=== PATIENT | female | born 1995 | race Caucasian/White ===

== ENCOUNTER 2023-07-30 18:43 | Observation (INO) | payer OTHER ==
[~2023-07-30] VITALS: Ht 162.6 cm; Wt 120.0 kg
[2023-07-30] MEDS ORDERED: Morphine 4 MG/ML VIAL IV PRN (19:00)
[2023-07-30] MEDS ORDERED: oxyCODONE 5 MG TAB PO PRN (19:00)
[2023-07-30] MEDS ORDERED: Naloxone 0.4 MG/ML VIAL IV PRN ×2 (19:00→21:30)
[2023-07-30] MEDS ORDERED: HYDROmorphone 0.5 MG/0.5 ML SYRINGE IV PRN (19:00)
[2023-07-30] MEDS ORDERED: Ketorolac 15 MG/ML VIAL IV SCH (19:00)
[2023-07-30] MEDS ORDERED: NS 1,000 ML IV ONE (19:00)
[2023-07-30] MEDS ORDERED: Ondansetron 4 MG/2 ML VIAL IV PRN (19:00)
--- NOTE | 2023-07-30 19:10 | NUR ---
PT ON THE FLOOR VIA EMS. INT TO LEFT WRIST. VITAL SIGNS STABLE. PT REPORTS INCREASED RIGHT FLANK PAIN. BEDSIDE REPORT GIVEN TO GHAZAL VELAZCO. OVIDIO ON THE FLOOR
[2023-07-30] MEDS ORDERED: Ketorolac 15 MG/ML VIAL IV PRN (19:45)
[2023-07-30] MEDS ORDERED: Acetaminophen 500 MG TAB PO PRN (19:45)
[2023-07-30] MEDS ORDERED: Acetaminophen 500 MG TAB PO SCH ×2 (19:48)
[2023-07-30 20:00] VITALS: TEMP 98.1
[2023-07-30] MEDS ORDERED: diphenhydrAMINE 50 MG/ML 1 ML VIAL IV PRN (21:30)
[2023-07-30] MEDS ORDERED: diphenhydrAMINE 25 MG CAP PO PRN (21:30)
[2023-07-30 22:48] VITALS: BP_SYST 102
[2023-07-30] MEDS ORDERED: Naproxen 250 MG TAB PO SCH (22:48)
[2023-07-30] MEDS ORDERED: Ibuprofen 400 MG TAB PO SCH (22:48)
[2023-07-30] MEDS ORDERED: Ibuprofen 600 MG TAB PO SCH (22:48)
[2023-07-30] MEDS ORDERED: Ibuprofen 800 MG TAB PO SCH (22:48)
--- NOTE | 2023-07-30 22:52 | NUR ---
Pt. arrived at 1900 via EMS stretcher. Pt. able to ambulate to the bed independently. Pt. is A&OX3, assessment complete. INT to lt. wrist was patent. IV fluids started see jun. IV to lt wrist infiltrated, new site started by Olivier salcido. rf. forearm 22g. at this time. Pt. did spike a temp of 10.4 around 1999, Tyelenol given, Temp rechecked, and afebrile after tylenol, see vitals. Pt. has been given pain meds for pain see mar. Pt at this time rates pain at a 9, will give pain meds per mar. Pt. denies further needs.
[2023-07-30] MEDS ORDERED: Nicotine 14 MG DAILY PATCH TD SCH (23:15)
[2023-07-30 23:32] VITALS: BP 102/66; PULSE 83; TEMP 98.3
[2023-07-31] VITALS (11 sets, daily range): BP systolic 102–144; BP diastolic 65–84; PULSE 66–72; TEMP 97.5–97.8
[2023-07-31] MEDS ORDERED: Promethazine 12.5 MG in NS 50 ML IV PRN (02:00)
[2023-07-31] MEDS ORDERED: Promethazine 25 MG TAB PO PRN (02:30)
--- NOTE | 2023-07-31 07:05 | NUR ---
awake resting in bed, bedside shift report received from GHAZAL Merino
[2023-07-31] MEDS ORDERED: NS 1,000 ML IV SCH (07:30)
--- NOTE | 2023-07-31 08:00 | NUR ---
requesting to take a shower before surgery, assisted with getting up to shower,
--- NOTE | 2023-07-31 08:20 | NUR ---
shower completed and tolerated well, full assessment completed, see interventions for further info, c/o pain 12/16 and medicated with dilaudid 0.25mg slow IV, consents for surgery signed
--- NOTE | 2023-07-31 09:15 | NUR ---
in bed and appears to be sleeping, resp quiet and easy
[2023-07-31] MEDS ORDERED: LR 1,000 ML IV SCH (09:45)
[2023-07-31] MEDS ORDERED: Famotidine 20 MG TAB PO SCH (09:45)
[2023-07-31] MEDS ORDERED: ABILIFY20 MG PO (09:46)
[2023-07-31] MEDS ORDERED: LAMICTAL 100MG100 MG PO (09:46)
[2023-07-31] MEDS ORDERED: BUSPAR 30MG30 MG/TAB PO (09:47)
[2023-07-31] MEDS ORDERED: EFFEXOR XR75 MG/CAP PO (09:47)
[2023-07-31] MEDS ORDERED: XANAX 0.5MG0.5 MG PO (09:48)
[2023-07-31] MEDS ORDERED: PROAIR HFA0.09 MG/AC IH (09:49)
[2023-07-31] MEDS ORDERED: FLEXERIL 1010 MG/TAB PO (09:49)
--- NOTE | 2023-07-31 10:05 | NUR ---
having dry heaves and small amount of emesis, medicated wtih phenergan 12.5mg po and meds for surgery also given at this time, preop check list completed, ready for surgery
[2023-07-31] MEDS ORDERED: fentaNYL 50 MCG/ML 2 ML VIAL ONE ×2 (10:50→11:28)
[2023-07-31] MEDS ORDERED: Midazolam 2 MG/2 ML VIAL ONE ×2 (10:50→11:28)
[2023-07-31] MEDS ORDERED: Lidocaine PF 2% (20 MG/ML) 5 ML VIAL ONE (10:51)
[2023-07-31] MEDS ORDERED: dexAMETHasone 10 MG/ML VIAL ONE (10:52)
[2023-07-31] MEDS ORDERED: Ketorolac 30 MG/ML VIAL ONE (10:52)
[2023-07-31] MEDS ORDERED: Ondansetron 4 MG/2 ML VIAL ONE (10:52)
[2023-07-31] MEDS ORDERED: NS 10 ML IV ONE (10:52)
--- NOTE | 2023-07-31 11:00 | NUR ---
to surgery per bed
[2023-07-31] MEDS ORDERED: Succinylcholine PF 200 MG/10 ML SYRINGE IV ONE (11:26)
[2023-07-31] MEDS ORDERED: Rocuronium 50 MG/5 ML Multi-Dose VIAL ONE (11:27)
[2023-07-31] MEDS ORDERED: cefTRIAXone 1 G in Water For Injection,Sterile 10 ML IV SCH ×3 (12:00→13:00)
[2023-07-31] MEDS ORDERED: ALPRAZolam 0.5 MG TAB PO PRN (12:15)
[2023-07-31] MEDS ORDERED: Cyclobenzaprine 10 MG TAB PO PRN (12:15)
[2023-07-31] MEDS ORDERED: Iohexol 350 - 100 ML VIAL URETER-R ONE (12:26)
[2023-07-31] MEDS ORDERED: Lidocaine 2% (20 MG/ML) 20 ML UROJET UR ONE (12:26)
[2023-07-31] MEDS ORDERED: LEVAQUIN 5500 MG/TA1 PO (12:45)
[2023-07-31] MEDS ORDERED: hydrALAZINE 20 MG/ML 1 ML VIAL IV PRN (13:30)
[2023-07-31] MEDS ORDERED: HYDROmorphone 1 MG/1 ML SYRINGE [PACU/SDC ONLY] IV PRN (13:30)
[2023-07-31] MEDS ORDERED: fentaNYL 50 MCG/ML 1 ML SYRINGE/VIAL [PACU/SDC ONLY] IV PRN (13:30)
[2023-07-31] MEDS ORDERED: Albuterol 0.042% Neb Soln 1.25 MG/3 ML UD IH PRN (13:30)
--- NOTE | 2023-07-31 13:35 | NUR ---
returned to room per bed from PACU, awake and alert, assisted up to bathroom and voided qs, then back to bed, denies pain, she is alert and oriented, skin warm and dry, color good, IV fluids infusing per gravity,
[2023-07-31] MEDS ORDERED: busPIRone 7.5 MG TABLET PO SCH (14:00)
--- NOTE | 2023-07-31 14:00 | NUR ---
assisted back up to bathroom and voided small amount, is taking water and tolerates well, instructed on ordering regular food
--- NOTE | 2023-07-31 14:15 | NUR ---
has ordered something to eat, rests well between checks
--- NOTE | 2023-07-31 14:51 | NUR ---
ch. introduced self. ch. obsevered that pt was doing well. Spiritual care intervention was having a nice small conversation. Pt had family in room, and son.
--- NOTE | 2023-07-31 15:00 | NUR ---
ambulated out to [place] and asking about going home, has had something to eat and tolerated well, will plan discharge soon
--- NOTE | 2023-07-31 15:15 | NUR ---
discharge instructions given to patient and verbalizes understanding, she is dressed and ready for discharge
[2023-07-31] MEDS ORDERED: lamoTRIgine 100 MG TAB PO SCH (21:00)
[2023-07-31] MEDS ORDERED: Sennosides/Docusate 8.6-50 MG TAB PO SCH (21:00)
[2023-08-01] MEDS ORDERED: ARIPiprazole 10 MG TAB PO SCH (09:00)
[2023-08-01] MEDS ORDERED: Celecoxib 200 MG CAP PO SCH (09:00)
== END 2023-07-31 15:25 | disposition home or self-care (01) ==
LOC: MEDICAL 18:43
PROVIDERS: ADMIT Urology
DX: N20.1 Calculus of ureter (principal); K21.9 Gastro-esophageal reflux disease without esophagitis; F17.290 Nicotine dependence, other tobacco product, uncomplicated
CPT/HCPCS: C1769; C2617; G0378; G0379; J0690; J0696; J1100; J1170; J1200; J1885; J2250; J2405; J2704; J3010; J7030; J7120; Q9967

== ENCOUNTER 2023-11-26 19:51 | Emergency (ER) | payer OTHER ==
[~2023-11-26] VITALS: Ht 162.6 cm; Wt 109.1 kg
[~2023-11-26 19:51] MED LIST: ABILIFY20 MG PO; BUSPAR 30MG30 MG/TAB PO; EFFEXOR XR75 MG/CAP PO; FLEXERIL 1010 MG/TAB PO; LAMICTAL 100MG100 MG PO; LEVAQUIN 5500 MG/TA1 PO; PROAIR HFA0.09 MG/AC IH; XANAX 0.5MG0.5 MG PO
[2023-11-26 19:54] VITALS: TEMP 98.4
[2023-11-26 20:17] LABS: PH 6.5 (5.0-8.5); URINE APPEARANCE CLEAR (CLEAR/HAZY); URINE BLOOD 2+ (NEGATIVE); URINE COLOR YELLOW (YELLOW); URINE GLUCOSE NEGATIVE (NEGATIVE); URINE KETONE NEGATIVE (NEGATIVE); URINE NITRATE NEGATIVE (NEGATIVE); URINE PROTEIN(semi-quant) NEGATIVE (NEGATIVE); URINE UROBILINOGEN 0.2 E.U/dL (0.2-1.0)
[2023-11-26 20:39] LABS: COLLECTION METHOD CLEAN CATCH
[2023-11-26] MEDS ORDERED: NS 1,000 ML IV ONE (20:45)
[2023-11-26] MEDS ORDERED: Ketorolac 30 MG/ML VIAL IV ONE (20:45)
[2023-11-26] MEDS ORDERED: Ondansetron 4 MG/2 ML VIAL IV ONE (20:45)
[2023-11-26 21:06] LABS: BASO % 0.3 % (0.0-2.0); EOS # 0.3 K/mm3 (0.0-0.7); GRAN # 9.4 K/mm3 (1.4-6.5); GRAN % 64.6 % (42.2-75.2); HEMOGLOBIN 14.9 g/dl (12.5-16.0); LYMPH # 3.9 K/mm3 (1.2-3.4); LYMPH % 26.6 % (20.0-51.0); MEAN CELL VOLUME 89 fl (80.0-100.0); MEAN CORPUSCULAR HEMOGLOBIN 30 pg (27-31); MEAN CORPUSCULAR HGB CONC 34 g/dl (33.0-37.0); MEAN PLATELET VOLUME 9.4 fl (7.4-10.4); MONO # 0.9 K/mm3 (0.1-0.6); MONO % 5.9 % (1.7-9.3); PLATELET COUNT 386 K/mm3 (130-400); RED BLOOD COUNT 4.96 M/mm3 (4.10-5.30); REDCELL DISTRIBUTION WIDTH-CV 12.8 % (11.5-14.5)
[2023-11-26 21:14] LABS: ALBUMIN 4.1 g/dL (3.5-5.0); BILIRUBIN,TOTAL 0.3 mg/dL (0.2-1.2); CALCIUM 9.7 mg/dL (8.4-10.2); CREATININE, serum 0.89 mg/dL (0.57-1.11); POTASSIUM 3.2 mEq/L (3.5-4.5)
[2023-11-26] MEDS ORDERED: Iohexol 300 - 100 ML VIAL IV ONE (21:28)
[2023-11-26] MEDS ORDERED: NS 50 ML IV SCH (21:29)
[2023-11-26] MEDS ORDERED: droPERidol 2.5 MG/ML 2 ML VIAL IV ONE (22:00)
[2023-11-26 22:35] VITALS: BP 146/86; PULSE 74
== END 2023-11-26 22:36 | disposition home or self-care (01) ==
LOC: COL.ER 19:51
PROVIDERS: Nurse Practitioner Primary Care
DX: N83.202 Unspecified ovarian cyst, left side (principal); F17.290 Nicotine dependence, other tobacco product, uncomplicated
CPT/HCPCS: J1790; J1885; J2405; J7030; Q9967